=== PATIENT | male | born 1950 | race Caucasian/White ===

== ENCOUNTER 2017-05-10 23:06 | Observation (INO) | payer MEDICARE ==
[~2017-05-10] VITALS: Ht 172.7 cm; Wt 95.4 kg
[2017-05-10] MEDS ORDERED: PANTOPRAZOLE 40 MG 10ML VIAL IV STA (23:34)
[2017-05-10] MEDS ORDERED: SODIUM CHLORIDE 0.9% 1000ML 1,000 ML IV STA (23:34)
[2017-05-10] MEDS ORDERED: SODIUM CHLORIDE 0.9% 1000ML 1,000 ML ONE (23:39)
[2017-05-10 23:51] LABS: BASOPHILS # (AUTO) 0.1 (0.0-0.1); BASOPHILS % 0.9 % (0.0-1.0); EOSINOPHILS # (AUTO) 0.2 (0.0-0.4); EOSINOPHILS % 2.5 % (0.0-6.0); HEMATOCRIT 43.1 % (38.2-49.6); HEMOGLOBIN 14.5 g/dL (14.0-18.0); LYMPHOCYTES # (AUTO) 3.1 (1.0-3.2); LYMPHOCYTES % 31.9 % (18.0-39.1); MEAN CORPUSCULAR HEMOGLOBIN 32.7 pg (28-32); MEAN CORPUSCULAR HGB CONC 33.6 g/dL (31-35); MEAN CORPUSCULAR VOLUME 97.1 fL (81-99); MONOCYTES % 10.7 % (4.4-11.3); NEUTROPHILS # (AUTO) 5.2 (2.1-6.9); NEUTROPHILS % 53.7 % (38.7-80.0); PLATELET COUNT 303 x10e3/uL (140-360); RED BLOOD COUNT 4.44 x10e6/uL (4.3-5.7); RED CELL DISTRIBUTION WIDTH 13.1 % (11.7-14.4)
[2017-05-10 23:55] LABS: INR 0.97; PROTHROMBIN TIME 13.4 seconds (11.9-14.5)
[2017-05-11 00:04] LABS: ALBUMIN 3.7 g/dL (3.5-5.0); ALBUMIN/GLOBULIN RATIO 1.2 (0.8-2.0); ANION GAP 14.4 mmol/L (8-16); CALCIUM 9.3 mg/dL (8.4-10.2); CREATININE, SERUM 1.39 mg/dL (0.72-1.25); MAGNESIUM 2.3 MG/DL (1.3-2.1); POTASSIUM 3.4 mmol/L (3.5-5.1)
[2017-05-11 00:08] LABS: SALICYLATE < 5.0 mg/dL (0-30)
--- NOTE | 2017-05-11 00:10 | Diagnostic Imaging Report ---
EXAM: CHEST SINGLE (PORTABLE), AP 1 view ORDER DATE: 05/10/2017 11:34 PM Time stamp on exam: 2349 hours INDICATION: Low blood pressure COMPARISON: None FINDINGS: LINES/TUBES: None LUNGS: No consolidations or edema. PLEURA: No effusions or pneumothorax. HEART AND MEDIASTINUM: Normal size and contour. BONES AND SOFT TISSUES: No acute findings. IMPRESSION: No acute thoracic abnormality. Signed by: Dr. Liliana Oleary M.D. on 05/11/2017 12:07 AM
[2017-05-11 00:11] LABS: CREATINE KINASE MB 1.4 ng/mL (0.00-5.00)
[2017-05-11 00:30] LABS: B-TYPE NATRIURETIC PEPTIDE2 < 10.0 pg/mL (0-100)
[2017-05-11] MEDS ORDERED: SODIUM CHLORIDE 0.9% 1000ML 1,000 ML IV STA (00:46)
[2017-05-11] MEDS ORDERED: VANCOMYCIN 1GM/NS 250 ML 250 ML IV STA (00:46)
[2017-05-11 00:48] LABS: ACETAMINOPHEN 3 ug/mL (10-30)
[2017-05-11] MEDS ORDERED: HYDROCHLOROTHIA25 MG PO (00:51)
[2017-05-11] MEDS ORDERED: MELOXICAM7.5 MG PO (00:51)
[2017-05-11] MEDS ORDERED: TIZANIDINE HCL4 MG PO (00:51)
[2017-05-11] MEDS ORDERED: AMBIEN10 MG PO (00:51)
[2017-05-11] MEDS ORDERED: ATENOLOL50 MG PO (00:51)
[2017-05-11] MEDS ORDERED: TRAZODONE HCL50 MG PO (00:51)
[2017-05-11] MEDS ORDERED: CYMBALTA20 MG PO (00:51)
[2017-05-11] MEDS: CEFEPIME HCL 2 GM VIAL IV SCH ×2 (01:34→12:23)
[2017-05-11 01:37] LABS: KETONES,URINE NEGATIVE (NEGATIVE); LEUKOCYTE ESTERASE ,URINE NEGATIVE (NEGATIVE); NITRITE,URINE NEGATIVE (NEGATIVE); URINE UROBILINOGEN 4 mg/dL (0.2 - 1)
[2017-05-11 01:39] LABS: BILIRUBIN,URINE 1+ (NEGATIVE); CLARITY,URINE CLEAR (CLEAR); COLOR,URINE YELLOW (YELLOW); PROTEIN,URINE DIPSTICK 1+ (NEGATIVE)
[2017-05-11 01:42] LABS: AMPHETAMINES SCREEN,URINE NEGATIVE (NEGATIVE); BENZODIAZEPINES SCREEN,URINE NEGATIVE (NEGATIVE); PHENCYCLIDINE SCREEN,URINE NEGATIVE (NEGATIVE)
[2017-05-11 01:47] LABS: RBC,URINE 0-5 /HPF (0-5); WBC,URINE (MAN) 0-5 /HPF (0-5)
[2017-05-11 01:48] LABS: EPITHELIAL CELLS,URINE FEW /LPF; HYALINE CASTS 0-1 (0-1)
[2017-05-11] MEDS ORDERED: POTASSIUM CHLORIDE 20 MEQ TAB CR PO STA (02:14)
[2017-05-11] MEDS: SODIUM CHLORIDE 0.9% 1000ML 1,000 ML IV SCH ×2 (02:30→12:03)
[2017-05-11] MEDS ORDERED: ASPIRIN 81 MG CHEW TAB PO ONE (02:45)
[2017-05-11] MEDS ORDERED: ONDANSETRON HCL INJ 2 MG/ML VIAL IV PRN (02:45)
--- OUTSIDE RECORDS SUMMARY | 2017-05-11 03:04 | XMS REPORT ---
Author Author [facility] Address Unknown Phone Unavailable Care Team Providers Care Metallurgist Helper Name Role Phone VANDANA RL Unavailable Unavailable Problems This patient has no known problems. Allergies, Adverse Reactions, Alerts This patient has no known allergies or adverse reactions. Medications This patient has no known medications. Results Test Description Test Time Test Comments Text Results Atomic Results Result Comments CHEST SINGLE (PORTABLE) [place] [id number] Patient Name: JOSTIN GONZALEZ MR #: [id number] : 1950 Age/Sex: 66/M Req #: [id number] Adm Physician: Ordered by: RL ROSS MD Report #: [id number] Location: ER Room/Bed: Procedure: [id number] DX/CHEST SINGLE (PORTABLE) Exam Date: 05/10/17 Exam Time: 2350 REPORT STATUS: Signed EXAM: CHEST SINGLE (PORTABLE), AP 1 view ORDER DATE: 05/10/2017 11:34 PM Time stamp on exam : 2349 hours INDICATION: Low blood pressure COMPARISON: None FINDINGS: LINES/TUBES: None LUNGS: No consolidations or edema. PLEURA: No effusions or pneumothorax. HEART AND MEDIASTINUM: Normal size and contour. BONES AND SOFT TISSUES: No acute findings. IMPRESSION: No acute thoracic abnormality. Signed by: Dr. Musa Hernandez M.D. on 2017 12:07 AM Dictated By: MUSA HERNANDEZ MD Transcribed By: MARLEE on 05/11/176 COPY TO: RL ROSS MD
[2017-05-11 07:40] VITALS: BP 137/77
[2017-05-11 08:23] VITALS: BP 137/75
[2017-05-11 08:27] LABS: CREATINE KINASE 92 IU/L (30-200)
[2017-05-11 08:59] LABS: ALANINE AMINOTRANSFERASE 27 IU/L (0-55); ALBUMIN 3.5 g/dL (3.5-5.0); ALBUMIN/GLOBULIN RATIO 1.3 (0.8-2.0); ALKALINE PHOSPHATASE 58 IU/L (40-150); ANION GAP 13.5 mmol/L (8-16); BLOOD UREA NITROGEN 15 mg/dL (7-26); BUN/CREATININE RATIO 13 (6-25); CALCIUM 8.3 mg/dL (8.4-10.2); CARBON DIOXIDE 22 mmol/L (22-29); CHLORIDE 110 mmol/L (98-107); CREATININE, SERUM 1.13 mg/dL (0.72-1.25); EST GLOMERULAR FILTRATION RATE > 60 ML/MIN (60-); GLUCOSE 107 mg/dL (74-118); POTASSIUM 4.5 mmol/L (3.5-5.1); SODIUM 141 mmol/L (136-145)
[2017-05-11] MEDS ORDERED: ASPIRIN 325 MG TAB EC PO SCH (09:00)
[2017-05-11 11:31] LABS: BASOPHILS # (AUTO) 0.1 (0.0-0.1); BASOPHILS % 0.7 % (0.0-1.0); EOSINOPHILS # (AUTO) 0.1 (0.0-0.4); HEMATOCRIT 40.5 % (38.2-49.6); HEMOGLOBIN 13.5 g/dL (14.0-18.0); LYMPHOCYTES # (AUTO) 1.2 (1.0-3.2); LYMPHOCYTES % 16.3 % (18.0-39.1); MEAN CORPUSCULAR HEMOGLOBIN 32.3 pg (28-32); MEAN CORPUSCULAR HGB CONC 33.3 g/dL (31-35); MEAN CORPUSCULAR VOLUME 96.9 fL (81-99); MONOCYTES # (AUTO) 0.4 (0.2-0.8); MONOCYTES % 5.9 % (4.4-11.3); NEUTROPHILS # (AUTO) 5.6 (2.1-6.9); NEUTROPHILS % 75.8 % (38.7-80.0); PLATELET COUNT 234 x10e3/uL (140-360); RED BLOOD COUNT 4.18 x10e6/uL (4.3-5.7); RED CELL DISTRIBUTION WIDTH 13.2 % (11.7-14.4)
[2017-05-11 12:38] VITALS: BP 143/76
[2017-05-11 16:07] VITALS: BP 158/74
--- NOTE | 2017-05-11 17:29 | History and Physical ---
PRIMARY CARE PROVIDER: [facility]. SHORTSTAY SUMMARY ADMITTING DIAGNOSES 1. Near syncope. 2. Orthostatic hypotension. 3. Hypertension. DISCHARGE DIAGNOSES 1. Near syncope. 2. Orthostatic hypotension. 3. Hypertension. BRIEF HISTORY: Mr. Snyder is a 66-year-old gentleman who late last night was sitting in his recliner watching TV. He got up to go to the bathroom and after about 10 feet he got lightheaded and weak and collapsed, no loss of consciousness, no head trauma, but was found to have a low blood pressure 80/60 in the ER and marked dehydration on his lab work. REVIEW OF SYSTEMS: He denies fever, chills or weight loss. Denies sinus congestion or sore throat. Denies chest pain or palpitations. Denies shortness breath, wheezing or cough. Denies abdominal pain, nausea, vomiting or melena. He denied dysuria or flank pain. He denied rash or pruritus. 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 He has chronic pain there with some sciatic radiculopathy. He denies bleeding or bruising. He denies headache or vertigo and he denies loss of consciousness. He denies depression, agitation, homicidal or suicidal ideation. PAST MEDICAL HISTORY: Significant for hypertension and degenerative disease of the spine with chronic pain. MEDICATIONS: Atenolol 50 mg daily. Vasotec 20 mg daily. Cymbalta 20 mg daily. Hydrochlorothiazide 25 mg daily. Meloxicam 7.5 mg daily. Tizanidine 4 mg 3 times a day as needed. Trazodone 50 mg at bedtime and Ambien 12.5 mg at bedtime for sleep. PAST SURGICAL HISTORY: He has history of tonsillectomy. ALLERGIES: HE HAS STATED ALLERGY TO SULFA DRUGS AND PENICILLIN. FAMILY HISTORY: Remarkable for hypertension. No premature heart disease. SOCIAL HISTORY: The patient is . [place] is his primary language. He does not smoke, drink or use illegal drugs. He is generally independently functioning. PHYSICAL EXAM: PSYCHIATRIC: He is awake, alert and oriented times 3 with normal mood and affect. CONSTITUTIONAL: He has a normal body habitus. Is in no acute distress. VITAL SIGNS: Blood pressure 143/76. It was 80/60 on admission. His heart rate, currently 75 with 76 on admission. He is on a beta dyan. Respiratory rate 18. O2 sat 96% on room air. Temperature 98.3. He was afebrile on admission. HEENT: Head is atraumatic. His eyes are anicteric with clear conjunctivae. Ears and nares are without erythema or discharge. Oropharynx is clear. NECK: Is supple with no mass or thyromegaly. LYMPHATIC SYSTEM: He has no palpable cervical, axillary or inguinal adenopathy. CARDIOVASCULAR: His heart has a regular rate and rhythm without murmur or extra heart sounds. He has no carotid bruits. Has no peripheral edema. Has palpable dorsal pedal pulses. RESPIRATORY: Clear to auscultation and percussion with normal respiratory effort. GASTROINTESTINAL: Abdomen is soft without organomegaly, masses or tenderness. He has normal bowel sounds present. CUTANEOUS: His skin is warm and dry to touch with no rash or skin breakdown. MUSCULOSKELETAL: Joints are normal alignment without erythema or swelling. Has no calf tenderness. NEUROLOGIC: Exam is nonfocal with intact cranial nerves and no motor or sensory deficits. DIAGNOSTIC STUDIES: Chest x-ray is clear with no acute disease. UA is clear with no bacteria. Flu screen is negative. His urine drug screen does have some alcohol, 19.3. His troponin 0.007 and then less than 0.001. His BNP less than 10.0. Lactic acid initially 21.8 but repeat was 10.8 which is normal. Magnesium 2.3. His chemistry shows normal electrolytes. CO2 24. Creatinine 1.39, BUN 51 for a GFR 51. Glucose 146. Calcium 9.3. Patient has no history of diabetes. After 24 hours of hydration, 3 liters of fluid in, his electrolytes are normal. CO2 is 22. Creatinine 1.3. BUN 15 for a normal GFR. Calcium is 8.3. Glucose is 107. His transaminases, bilirubin and alkaline phos are normal. CBC shows a white count of 7.31 with a normal differential. Hemoglobin 13.5, hematocrit 40.5 and platelet count 234,000. IMPRESSION AND PLAN 1. Near syncope due to orthostatic hypotension. Patient's blood pressure is better now after 3 liters of IV fluids. His renal function has returned to normal. He feels better. He is no longer orthostatic. We have continued his atenolol but held his other blood pressure medications and I have instructed him to stay off of the Vasotec and hydrochlorothiazide and to continue the atenolol only. He says he has one other blood pressure pill. I told him he can take that one until he follows up with his primary care provider. He seems to think it is diltiazem which will be fine. 2. History of hypertension. Again will continue atenolol and his other blood pressure pill but stop both Vasotec and hydrochlorothiazide as they have a tendency to induce dehydration and orthostasis. HOSPITAL COURSE: Patient was admitted to the floor overnight for observation. Serial cardiac enzymes and EKGs were negative for myocardial injury. His workup for syncope was negative. His blood pressure and renal function much better after IV fluids. The patient will be discharged home to resume his home medications except for stopping Vasotec and hydrochlorothiazide and follow up with his PCP within 2 weeks. Job#: [id number]
== END 2017-05-11 17:07 | disposition home or self-care (01) ==
LOC: ER 23:06 → ERHOLD 05-11 03:00 → IMCU 05-11 07:06
PROVIDERS: ADMIT Internal Medicine; ATTEND Internal Medicine
DX: I95.1 Orthostatic hypotension (principal); I10 Essential (primary) hypertension; Z82.49 Family history of ischemic heart disease and other diseases of the circulatory system; E86.0 Dehydration; N28.9 Disorder of kidney and ureter, unspecified; M48.8X9 Other specified spondylopathies, site unspecified; G89.29 Other chronic pain
CPT/HCPCS: 36415; 71045; 80053 ×2; 80307; 80320; 80329 ×2; 81001; 82550 ×2; 82553 ×2; 82948; 83605 ×2; 83735; 83880; 84484 ×2; 85025 ×2; 85379; 85610; 85730; 87040; 87086; 87400; 93005; 96360; 99284; G0378; J0692; J3370; J7030 ×2